=== PATIENT | female | born 1970 | race Caucasian/White ===

== ENCOUNTER → 2016-08-28 | Outpatient (CLI) | payer BC ==
--- NOTE | 2016-08-28 11:02 | DX ---
PA and lateral chest x-ray 1002 hours. History: Possible pneumonia. History of lung disease. Flulike symptoms. Findings: Comparison to 04/21/2016 and 04/18/2015. Heart size and pulmonary vasculature remain within normal limits. Mild prominent interstitial marking s are suspected within the lingula as well as mild bronchial wall thickening to the lingula. This pat tern was present previously. The remainder of the lungs are clear. There are no effusions. There is n o evidence of pneumothorax. Osseous structures are unchanged with mild dextroscoliosis mid thoracic s pine. Impression: 1. Mild prominent interstitial markings at the left lung base that appear to involve the lingula with some bronchial wall thickening. There may be superimposed bronchiectasis. However, this pattern was present on the prior chest x-ray studies. This could represent recurrent interstitial infiltrate. Chr onic interstitial lung disease may also be considered in this region with some scarring. There may al so be underlying bronchiectasis in the lingula. 2. Stable mild dextroscoliosis mid thoracic spine.
== END ==
LOC: BMCIMAGING 10:05
PROVIDERS: ATTEND Internal Medicine
DX: R91.8 Other nonspecific abnormal finding of lung field (principal); J98.4 Other disorders of lung; M41.84 Other forms of scoliosis, thoracic region

== ENCOUNTER 2017-02-13 21:41 | Emergency (ER) | payer BC ==
[2017-02-13 21:52] VITALS: BP 117/84; PULSE 74; RESP 16; TEMP 99.3; O2SAT 96
--- NOTE | 2017-02-13 23:16 | EDPHY ---
H & P Stated Complaint: L eyelid redness/swelling Time Seen by Provider: 02/13/17 22:02 HPI/ROS: CHIEF COMPLAINT: left lower eyelid swelling HISTORY OF PRESENT ILLNESS: 46-year-old female presents emergency department complaining of left lower eyelid swelling that she noticed 3 days ago. She reports that it has progressively gotten a little more red and swollen with tenderness today. No blurred vision, no eye discharge, no pain with eye movement. Patient reports she has had a intermittent mild sore throat for the past few days and some mild fatigue. She denies cough, shortness of breath or chest pain. She does not were contact lenses. REVIEW OF SYSTEMS: A comprehensive 10 point review of systems is otherwise negative aside from elements mentioned in the history of present illness. Source: Patient Exam Limitations: No limitations - Personal History LMP (Females 10-55): 15-21 Days Ago Current Tetanus/Diphtheria Vaccine: Yes Tetanus Vaccine Date: < 10 YEARS - Medical/Surgical History Hx Asthma: Yes Hx Chronic Respiratory Disease: No Hx Diabetes: No Hx Cardiac Disease: No Hx Renal Disease: No Hx Cirrhosis: No Hx Alcoholism: No Hx HIV/AIDS: No Hx Splenectomy or Spleen Trauma: Yes Other PMH: PMHx: PNA with Bronc; GERD; Asthma, R arm DVT 2002, superficial R arm clots 2015, history of collapsed lung,. PSH: 4 sinus polyp surgeries, bowel obstruction/spleenectomy - Social History Smoking Status: Never smoked - Physical Exam Exam: General: Alert, nontoxic. ENT: Nasopharynx is not injected, there is no rhinorrhea. Oropharynx with mild erythema. There is no exudate. No tonsillar hypertrophy. No asymmetry. The uvula is midline. No elevation of tongue. There is no hoarseness. No drooling, patient has good control of their oral secretions. No trismus. No stridor. Left lower eyelid with hordeolum, mild swelling, tenderness to palpation, erythema. No periorbital or preseptal cellulitis. Extraocular motions intact without pain. No conjunctival erythema, no discharge. Cardiac: Regular rate and rhythm. Respiratory: Lungs clear to auscultation bilaterally. Neurological: no meningismus. Skin: No rashes. Constitutional: Initial Vital Signs Temperature (C) 37.4 C 02/13/17 21:49 Heart Rate 74 02/13/17 21:49 Respiratory Rate 16 02/13/17 21:49 Blood Pressure 117/84 H 02/13/17 21:49 O2 Sat (%) 96 02/13/17 21:49 O2 Delivery Mode Room Air Allergies/Adverse Reactions: aspirin Allergy (Verified 07/03/15 15:59) ceftriaxone Allergy (Verified 07/03/15 16:02) Cephalosporins Allergy (Verified 07/03/15 16:02) levofloxacin [From Levaquin] Allergy (Verified 02/13/17 21:49) NSAIDS (Non-Steroidal Anti-Inflamma Allergy (Verified 07/03/15 15:59) GADOLINIUM Allergy (Uncoded 08/18/15 16:54) Home Medications: Medication Instructions Recorded Albuterol 08/18/15 Breo 08/18/15 Budesonide 1 mg IH 10/20/15 Mometasone/Formoterol [Dulera 100 10/20/15 Mcg/5 Mcg Inhaler] oxyCODONE/APAP 5/325 [Percocet 1 tab PO Q6 #20 tab 10/20/15 5/325] Departure - Departure Disposition: Home, Routine, Self-Care Clinical Impression: Hordeolum externum left lower eyelid Condition: Good Instructions: Mark (ED) Additional Instructions: Warm compresses to your left lower eyelid multiple times per day. Return to the emergency department for any pain with eye movement, increasing redness or swelling, fevers, new symptoms or concerns. Referrals: CAN,T REMEMBER NAME [Other] - As per Instructions
== END 2017-02-13 23:15 | disposition home or self-care (01) ==
DX: H00.015 Hordeolum externum left lower eyelid (principal); J45.909 Unspecified asthma, uncomplicated

== ENCOUNTER 2017-08-25 13:21 | Emergency (ER) | payer BC ==
--- NOTE | 2017-08-25 13:45 | EDPHY ---
H & P Stated Complaint: 2 weeks increasing cough/fever Time Seen by Provider: 08/25/17 13:44 HPI/ROS: HPI: This is a 6-year-old female who presents with Chief Complaint: 2 weeks increasing cough/fever Location: Chest Quality: Cough Duration: 2 weeks Signs and Symptoms:+ subject fever last night, + chills last night, + dry hacking cough, no fatigue, no shortness of breath, no chest pain, + runny nose, no nasal congestion, no abdominal pain, no palpitations, no lower extremity edema/trauma Timing: Sudden, waxes and wanes Severity: Moderate Context: Patient has a history of bronchiectasis, pneumonia, superficial and deep DVTs secondary to IV catheterization, pneumothorax presents with 2 week history of dry hacking cough that she believe she contracted while flying from [place] to [place] 2 weeks ago. She reports that it was improving and saw her PCP within the last several days and told she had good aeration and lung sounds. Last night, she started to experience chills and subjective fever and started to have a runny nose. Patient reports that she has had the hematology workup in the past and was advised to have Lovenox injections prior to any IV catheterization. She takes 4 baby aspirin daily. Discussed patient's heart rate in the 130s; patient denies any possibility of pulmonary embolism and refuses to have a CTA performed and reports that a D-dimer is useless. IV fluids to L normal saline ordered but patient refused and wishes to drink at bedside. She normally has budesonide nebulizers twice daily but did not perform this morning. Modifying Factors: See above Comment: ROS: see HPI Constitutional: No fever, no chills, no weight loss Eyes: No blurred vision Respiratory: No shortness of breath, no cough Cardiovascular: No chest pain Gastrointestinal: No nausea, no vomiting, no diarrhea Genitourinary: No dysuria Extremities: No myalgias Neurologic: No weakness, no numbness Skin: No rashes Hematologic: No bruising, no bleeding MEDICAL/SURGICAL/SOCIAL HISTORY: Medical/Surgical history: PNA with Bronc; GERD; Asthma, R arm DVT 2002, superficial R arm clots 2016, history of collapsed lung, PSH: 4 sinus polyp surgeries, bowel obstruction/splenectomy Social history: . Has children. CONSTITUTIONAL: Well-appearing adult white female, awake and alert, no obvious distress HEENT: Atraumatic and normocephalic, PERRL, EOMI. Nares patent with clear rhinorrhea. Tympanic membranes clear. Oropharynx clear, no exudate and moist pink mucosa. Airway patent. No lymphadenopathy. No meningismus. Cardiovascular: Normal S1/S2, tachycardia, regular rhythm, without murmur rub or gallop. PULMONARY/CHEST: Symmetrical and nontender. Transmitted upper airway sounds noted. Clear to auscultation bilaterally. Good air movement. No accessory muscle usage. ABDOMEN: Soft, nondistended, nontender, no rebound, no guarding, no peritoneal signs, no masses or organomegaly. No CVAT. EXTREMITIES: 2/2 pulses, strength 5/5, no deformities, no clubbing, no cyanosis or edema. NEUROLOGICAL: no focal neuro deficits. GCS 15. SKIN: Warm and dry, no erythema. no rash. Good capillary refill. Source: Patient Exam Limitations: No limitations - Personal History LMP (Females 10-55): 15-21 Days Ago Current Tetanus/Diphtheria Vaccine: Yes Tetanus Vaccine Date: < 10 YEARS - Medical/Surgical History Hx Asthma: Yes Hx Chronic Respiratory Disease: No Hx Diabetes: No Hx Cardiac Disease: No Hx Renal Disease: No Hx Cirrhosis: No Hx Alcoholism: No Hx HIV/AIDS: No Hx Splenectomy or Spleen Trauma: Yes Other PMH: PMHx: PNA with Bronc; GERD; Asthma, R arm DVT 2002, superficial R arm clots 2015, history of collapsed lung,. PSH: 4 sinus polyp surgeries, bowel obstruction/spleenectomy - Social History Smoking Status: Never smoked Constitutional: Initial Vital Signs Temperature (C) 37.5 C 08/25/17 13:32 Heart Rate 132 H 08/25/17 13:32 Respiratory Rate 20 08/25/17 13:32 Blood Pressure 108/90 H 08/25/17 13:32 O2 Sat (%) 92 08/25/17 13:32 O2 Delivery Mode Room Air Allergies/Adverse Reactions: aspirin Allergy (Verified 08/25/17 13:30) ceftriaxone Allergy (Verified 08/25/17 13:30) Cephalosporins Allergy (Verified 08/25/17 13:30) levofloxacin [From Levaquin] Allergy (Verified 08/25/17 13:30) NSAIDS (Non-Steroidal Anti-Inflamma Allergy (Verified 08/25/17 13:30) GADOLINIUM Allergy (Uncoded 08/18/15 16:54) Home Medications: Medication Instructions Recorded Albuterol 08/18/15 Breo 08/18/15 Budesonide 1 mg IH 10/20/15 ASPIRIN 08/25/17 Amoxicillin/Clavulanate Pot 875 mg PO BID #14 tab 08/25/17 [Augmentin 875 MG TAB (*)] Incuse 08/25/17 Zileuton 08/25/17 Medical Decision Making - Diagnostics EKG Interpretation: 12 lead EKG: Indication: Shortness of breath Rhythm: Sinus tachycardia, 99 beats per minute [place]: Normal Intervals: Normal QRS: Normal ST segments: Normal INTERPRETATION: No acute changes The 12 lead EKG was interpreted by myself and with attending. ED Course/Re-evaluation: EKG, chest x-ray, labs ordered Vital signs reviewed upon arrival; heart rate in the 130s; O2 sats 92% on room air. Patient refuses IV fluids; CTA chest; D-dimer or IV placement Lovenox 1 mg/kg ordered per patient insistence. No signs of hypoxia/respiratory distress/acute kidney injury/electrolyte imbalance EKG shows no arrhythmia/acute ischemic changes CXR my read shows irregularity in left lower lobe; no CXR to compare; discussed macrolide vs. Levaquin. Patient reports she only wants Augmentin. At discharge, heart rate has come down to the 110s which per patient is normal for her. She is requesting sputum cup to take to [facility] lab in order to have a sputum culture performed. Labs reviewed and showed leukocytosis with left shift; symptoms greater than 10 days Chest x-ray on disc and lab results provided to patient. This patient was seen under the supervision of my secondary supervising physician. I evaluated care for this patient independently. Differential Diagnosis: Shortness of breath including but not limited to pulmonary infectious process, COPD, asthma, pulmonary embolus and congestive heart failure. - Data Points Laboratory Results: Laboratory Results 08/25/17 14:20 08/25/17 14:20 Medications Given: Discontinued Medications Enoxaparin Sodium (Lovenox) 70 mg SC EDNOW ONE Stop: 08/25/17 14:06 Last Admin: 08/25/17 16:03 Dose: Not Given Sodium Chloride (Ns) 1,000 mls @ 0 mls/hr IV EDNOW ONE; Wide Open PRN Reason: Protocol Stop: 08/25/17 13:58 Last Admin: 08/25/17 16:03 Dose: Not Given Sodium Chloride (Ns) 1,000 mls @ 0 mls/hr IV EDNOW ONE; Wide Open PRN Reason: Protocol Stop: 08/25/17 13:58 Last Admin: 08/25/17 16:03 Dose: Not Given Departure - Departure Disposition: Home, Routine, Self-Care Clinical Impression: Lower respiratory tract infection Condition: Good Instructions: Community Acquired Pneumonia (ED) Additional Instructions: Please deliver sputum in sputum cup to [facility] lab. Only start antibiotics after sputum sample obtained. Your chest x-ray today was provided to you on disc. Follow up with your primary care provider in 2-3 days, if symptoms worsen. Referrals: Rakel Winter MD [Primary Care Provider] - As per Instructions Prescriptions: Amoxicillin/Clavulanate Pot [Augmentin 875 MG TAB (*)] 875 mg PO BID #14 tab
[2017-08-25] MEDS ORDERED: NS 1,000 ML IV ONE ×2 (13:57)
[2017-08-25] MEDS ORDERED: ENOXAPARIN 80 MG/0.8 ML SYR SC ONE (14:05)
[2017-08-25 14:28] LABS: PLATELET COUNT 286 10^3/uL (150-400)
--- NOTE | 2017-08-25 14:47 | CPEKG ---
Heart Rate: 99 RR Interval: 606 P-R Interval: 128 QRSD Interval: 94 QT Interval: 336 QTC Interval: 432 P Girard: 54 QRS Girard: 62 T Wave Girard: 52 EKG Severity - NORMAL ECG - EKG Impression: SINUS RHYTHM Electronically Signed By: Jace Padilla 29-Aug-2017 09:38:03
[2017-08-25 15:53] VITALS: PULSE 112; RESP 18; TEMP 100.4
[2017-08-25 16:06] VITALS: BP 108/74; O2SAT 94
== END 2017-08-25 16:20 | disposition home or self-care (01) ==
DX: J22 Unspecified acute lower respiratory infection (principal); J45.909 Unspecified asthma, uncomplicated; Z79.82 Long term (current) use of aspirin
CPT/HCPCS: J1650

== ENCOUNTER → 2017-10-18 | Outpatient (CLI) | payer BC | LOC: FIMAGING 07:58 | PROVIDERS: ATTEND Family Medicine | DX: Z12.31 Encounter for screening mammogram for malignant neoplasm of breast (principal) ==

== ENCOUNTER → 2018-10-19 | Outpatient (CLI) | payer BC | LOC: FIMAGING 14:30 | PROVIDERS: ATTEND Family Medicine | DX: Z12.31 Encounter for screening mammogram for malignant neoplasm of breast (principal) ==